=== PATIENT | male | born 1960 | race African-American/Black ===

== ENCOUNTER → 2016-11-09 | Outpatient (CLI) | payer OTHER ==
[2016-06-15 14:10] VITALS: BP 119/70
[~2016-11-09] MED LIST: DOXY100C14 PO; HYDR-971 PO
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
--- NOTE | 2016-11-10 08:33 | RAD ---
Indication right knee pain. AP and lateral views of the right knee were obtained. Bony mineralization appears normal. No acute finding is seen. There is slight medial joint space compartment and mild patellofemoral narrowing. IMPRESSION: Mild degenerative change involving the right knee
== END | disposition home or self-care (01) ==
LOC: DXRAD 09:49
DX: M17.11 Unilateral primary osteoarthritis, right knee (principal); M54.5 Low back pain
CPT/HCPCS: 72100; 73560

== ENCOUNTER → 2017-02-08 | Outpatient (CLI) | payer OTHER ==
[2016-06-15 14:10] VITALS: BP 119/70
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
== END | disposition home or self-care (01) ==
LOC: DXRAD 09:41
PROVIDERS: ATTEND Surgery
DX: M19.011 Primary osteoarthritis, right shoulder (principal); W34.00XD Accidental discharge from unspecified firearms or gun, subsequent encounter
CPT/HCPCS: 73030

== ENCOUNTER 2021-05-16 20:15 | Emergency (ER) | payer MEDICAID, OTHER ==
[~2021-05-16] VITALS: Ht 189.2 cm; Wt 75.1 kg
[~2021-05-16 20:15] MED LIST changes: +DOXY-181 PO; -DOXY100C14 PO; +HYDR-3165 PO; -HYDR-971 PO
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
[2021-05-16] MEDS ORDERED: MORPHINE SULFATE 10 MG/ML SYRINGE. IV ONE (22:45)
[2021-05-16] MEDS ORDERED: IOHEXOL 300 MG/ML 75 ML VIAL. IV ONE (23:00)
[2021-05-16] MEDS ORDERED: CONTRAST GIVEN. MC PRN (23:00)
[2021-05-16 23:13] LABS: BACTERIA,URINE 0 /HPF (0-FEW); BILIRUBIN,URINE NEG (NEG); CLARITY,URINE CLEAR; COLOR,URINE YELLOW; GLUCOSE,URINE NEG (NEG); NITRITE,URINE NEG (NEG); RBC,URINE 0 /HPF (0-2); SQUAMOUS EPITHELIAL CELL,UR OCC /LPF; UROBILINOGEN,URINE 0.2 mg/dL (0.2 mg/dL); WBC,URINE RARE /HPF (0-4)
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
[2021-05-17 00:45] LABS: BASO % 1 % (0-3); EOS # 0.2 x10^3/uL (0.0-0.7); EOS % 2 % (0-3); HEMATOCRIT 45.5 % (39.0-53.0); LYMPH # 1.6 x10^3/uL (1.0-4.8); LYMPH % 23 % (24-48); MEAN CORPUSCULAR HEMOGLOBIN 32 pg (25-35); MEAN CORPUSCULAR HGB CONC 33 g/dL (31-37); MEAN CORPUSCULAR VOLUME 97 fL (79-100); MONO # 0.5 x10^3/uL (0.0-1.1); MONO % 8 % (0-9); NEUT # 4.5 x10^3uL (1.8-7.7); NEUT % 66 % (31-73); PLATELET COUNT 239 x10^3/uL (140-400); RED BLOOD COUNT 4.69 x10^6/uL (4.30-5.70); RED CELL DISTRIBUTION WIDTH 14.4 % (11.5-14.5); WHITE BLOOD COUNT 6.9 x10^3/uL (4.0-11.0)
[2021-05-17 00:47] LABS: CALCIUM 8.4 mg/dL (8.5-10.1); CREATININE 0.8 mg/dL (0.7-1.3); GFR 120.1; POTASSIUM 3.6 mmol/L (3.5-5.1)
[2021-05-17 00:53] LABS: ALBUMIN 3.5 g/dL (3.4-5.0); ALBUMIN/GLOBULIN RATIO 0.9 (1.0-1.7); TOTAL BILIRUBIN 0.4 mg/dL (0.2-1.0); TOTAL PROTEIN 7.3 g/dL (6.4-8.2)
[2021-05-17] MEDS ORDERED: HYDR-2155 PO (01:03)
[2021-05-17 01:15] VITALS: BP 116/72
== END 2021-05-17 01:18 | disposition home or self-care (01) ==
LOC: ER 20:15
DX: K40.90 Unilateral inguinal hernia, without obstruction or gangrene, not specified as recurrent (principal); F31.9 Bipolar disorder, unspecified; Z87.11 Personal history of peptic ulcer disease; Z88.6 Allergy status to analgesic agent
CPT/HCPCS: 36415; 74177; 80053; 81001; 83605; 85025; 96374; 99285; J2270; Q9967